=== PATIENT | female | born 1990 | race African-American/Black ===

== ENCOUNTER 2020-02-21 20:55 | Emergency (ER) | payer OTHER ==
[2020-02-21] MEDS ORDERED: LORATADINE 10 MG TAB PO STA (21:46)
[2020-02-21] MEDS ORDERED: FLUTICASONE 50MCG/SPRAY NASAL 16GM EA NOSTRIL STA (21:46)
--- NOTE | 2020-02-21 21:56 | ED ---
General Adult HPI - General Chief complaint: ENT Stated complaint: Poss bug in R ear Time Seen by Provider: 02/21/20 21:01 Source: patient, RN notes reviewed, old records reviewed Mode of arrival: ambulatory Limitations: no limitations - History of Present Illness Initial comments: 29-year-old female patient presents to ED for evaluation of right ear pain. Patient reports that she has a pressure in her right ear and she is having some pain from it. Patient reports that yesterday she ate seafood and had ALLERGIC reaction. States that she broke out in hives. Reports his has resolved at this point. She denies any headache but does report that the right ear is somewhat throbbing in nature. She declines any other complaints at this time. Systemic: Pt denies fatigue, fever/chills, rash. Pt denies weakness, night sweats, weight loss. Neuro: Pt denies headache, visual disturbances, syncope or pre-syncope. HEENT: Pt denies ocular discharge or irritation, rhinorrhea, pharyngitis or notable lymphadenopathy. Cardiopulmonary: Pt denies chest pain, SOB, heart palpitations, dyspnea on exertion. Abdominal/GI: Pt denies abdominal pain, n/v/d. : Pt denies dysuria, burning w/ urination, frequency/urgency. Denies new onset urinary or bowel incontinence. MSK: Pt denies myalgia, loss of strength or function in extremities. Neuro: Pt denies new onset weakness, paresthesias. - Related Data Previous Rx's Medication Instructions Recorded Nitrofurantoin Macrocrystal 100 mg PO BID #14 cap 07/10/16 [Macrodantin] EPINEPHrine (Auto Inject) [Epipen] 0.3 mg IM ONCE PRN #2 pen 02/21/20 Loratadine [Claritin] 10 mg PO DAILY 7 Days #7 tab 02/21/20 Allergies Allergy/AdvReac Type Severity Reaction Status Date / Time watermelon AdvReac Swelling Verified 02/21/20 21:00 Review of Systems ROS Statement: Those systems with pertinent positive or pertinent negative responses have been documented in the HPI. ROS Other: All systems not noted in ROS Statement are negative. Past Medical History Past Medical History: No Reported History Additional Past Medical History / Comment(s): Migraine History of Any Multi-Drug Resistant Organisms: None Reported Additional Past Surgical History / Comment(s): leep Past Psychological History: No Psychological Hx Reported Smoking Status: Never smoker Past Alcohol Use History: Rare Past Drug Use History: None Reported General Exam - General Exam Comments Initial Comments: Constitutional: NAD, AOX3, Pt has pleasant affect. HEENT: NC/AT, trachea midline. Posterior pharynx non erythematous, without exudates. External ears appear normal, without discharge. Right tympanic membrane does display effusion. No erythema or signs of infection. Mild bulging is noted. Left tympanic membrane pale joseph. No bulging, no effusion is noted. Mucous membranes moist. Eyes PERRLA, EOM intact. There is no scleral icterus. No pallor noted. Cardiopulmonary: RRR, no murmurs, rubs or gallops, no JVD noted. Lungs CTAB in anterior and posterior de leon. No peripheral edema. Neuro: CN II-XII intact. No nuchal rigidity. No raccon eyes, no fleming sign, no hemotympanum. MSK: Full active ROM in upper and lower extremities. Limitations: no limitations Course Vital Signs 02/21/20 20:57 Temperature 97.3 F L Pulse Rate 76 Respiratory 18 Rate Blood Pressure 127/85 O2 Sat by Pulse 100 Oximetry Medical Decision Making - Medical Decision Making 29-year-old female patient presented to ED for chief complaint of right ear pain. Patient was concerned that it may be some sort of foreign body in there. Patient will signs are stable, afebrile. Physical exam displayed effusion behind her tympanic membrane. Patient does report a history of ALLERGIES. Patient will be initiated on Claritin, Flonase. Patient will be prescribed epipen for emergency anaphylaxis. Will follow up with primary care provider will return here if condition worsens. Case discussed with Dr. Norwood. Disposition Clinical Impression: Middle ear effusion Disposition: HOME SELF-CARE Condition: Stable Instructions (If sedation given, give patient instructions): Earache (ED) Additional Instructions: Follow-up with primary care tomorrow. Take medications as directed. Use 1 spray in each nostril Flonase once per day. Take Claritin once per day. Use EpiPen only for emergency anaphylaxis this includes swelling of the face, difficulty breathing, sensation of throat closing. Return to ER if condition worsens. Prescriptions: Loratadine [Claritin] 10 mg PO DAILY 7 Days #7 tab EPINEPHrine (Auto Inject) [Epipen] 0.3 mg IM ONCE PRN #2 pen PRN Reason: Anaphylaxis Is patient prescribed a controlled substance at d/c from ED?: No Referrals: None,Stated [Primary Care Provider] - 1-2 days Carly Henry MD [REFERRING] - 1-2 days
[2020-02-21] MEDS ORDERED: ACETAMINOPHEN TAB 325 MG TAB PO STA (21:59)
[2020-02-21 22:22] VITALS: BP 115/89; PULSE 83; RESP 16; TEMP 98.3
== END 2020-02-21 22:21 | disposition home or self-care (01) ==
LOC: EC 20:55
DX: H74.8X1 Other specified disorders of right middle ear and mastoid (principal); Z91.018 Allergy to other foods
CPT/HCPCS: 99283

== ENCOUNTER 2020-03-02 22:51 | Emergency (ER) | payer OTHER ==
[2020-03-02 23:03] VITALS: BP 150/99; PULSE 90; RESP 18; TEMP 98.2
[2020-03-02] MEDS ORDERED: DEXAMETHASONE SOD PHOSPHATE 10 MG/ML 1 ML VIAL IM STA (23:48)
[2020-03-02] MEDS ORDERED: predniSONE 50 MG TAB PO STA (23:48)
[2020-03-02] MEDS ORDERED: valACYclovir 500 MG TAB PO STA (23:49)
--- NOTE | 2020-03-02 23:54 | ED ---
Neuro HPI - General Chief Complaint: Neuro Symptoms/Deficit Stated Complaint: L Face Drooping Time Seen by Provider: 03/02/20 23:19 Source: patient, RN notes reviewed, old records reviewed Mode of arrival: ambulatory Limitations: no limitations - History of Present Illness Is the patient presenting with stroke symptoms?: Yes -: week(s) Initial Comments: This is a 29-year-old female of recent diagnosis of right ear infection coming in with right-sided facial droop. Drooling difficulty with smiling closing her eye. Patient denying arm or leg symptoms. Patient states she was sent down after showing up for work and no significant to severe paralysis. Patient denying any trauma or any other complaints Location: right face History of same: No Place: home Severity: moderate Quality: weak, numb Improves With: none Worsens With: none Context: gradual onset Associated Symptoms: denies other symptoms Treatments Prior to Arrival: none - Related Data Home Medications: Previous Rx's Medication Instructions Recorded Nitrofurantoin Macrocrystal 100 mg PO BID #14 cap 07/10/16 [Macrodantin] EPINEPHrine (Auto Inject) [Epipen] 0.3 mg IM ONCE PRN #2 pen 02/21/20 Loratadine [Claritin] 10 mg PO DAILY 7 Days #7 tab 02/21/20 predniSONE 50 mg PO DAILY #6 tab 03/02/20 predniSONE [Deltasone] 20 mg PO DAILY #6 tab 03/02/20 valACYclovir HCL [Valtrex] 1,000 mg PO Q8HR #21 tab 03/02/20 Allergies/Adverse Reactions: Allergies Allergy/AdvReac Type Severity Reaction Status Date / Time watermelon AdvReac Swelling Verified 03/02/20 23:03 Review of Systems ROS Statement: Those systems with pertinent positive or pertinent negative responses have been documented in the HPI. ROS Other: All systems not noted in ROS Statement are negative. General Exam - General Exam Comments Initial Comments: Right-sided facial palsy and paralysis Limitations: no limitations General appearance: alert, in no apparent distress Head exam: Present: atraumatic, normocephalic, normal inspection Eye exam: Present: normal appearance, PERRL, EOMI. Absent: scleral icterus, conjunctival injection, periorbital swelling ENT exam: Present: normal exam, mucous membranes moist Neck exam: Present: normal inspection. Absent: tenderness, meningismus, lymphadenopathy Respiratory exam: Present: normal lung sounds bilaterally. Absent: respiratory distress, wheezes, rales, rhonchi, stridor Cardiovascular Exam: Present: regular rate, normal rhythm, normal heart sounds. Absent: systolic murmur, diastolic murmur, rubs, gallop, clicks GI/Abdominal exam: Present: soft, normal bowel sounds. Absent: distended, tenderness, guarding, rebound, rigid Extremities exam: Present: normal inspection, full ROM, normal capillary refill. Absent: tenderness, pedal edema, joint swelling, calf tenderness Back exam: Present: normal inspection Neurological exam: Present: alert, oriented X3, CN II-XII intact Psychiatric exam: Present: normal affect, normal mood Skin exam: Present: warm, dry, intact, normal color. Absent: rash Stroke MDM - NIH Stroke Scale 1a. Level of Consciousness: (0) alert 1b. LOC Questions: (0) answers correctly 1c. LOC Commands: (0) performs tasks correctly 2. Best Gaze: (0) normal 3. Visual: (0) no visual loss 4. Facial Palsy: (3) complete paralysis 5a. Motor Arm Left: (0) no drift 5b. Motor Arm Right: (0) no drift 6a. Motor Leg Left: (0) no drift 6b. Motor Leg Right: (0) no drift 7. Limb Ataxia: (0) absent 8. Sensory: (0) normal 9. Best Language: (0) no aphasia 10. Dysarthria: (0) normal 11. Extinction/Inattention: (0) no abnormality - Thrombolytic Inclusion/Exclusion Thrombolytic Exclusion Criteria: Symptom Onset > 4.5 Hours - Medical Decision Making 29 female DF presented with right facial paralysis diagnosis of Alonso's palsy made. Patient can be discharged home Past Medical History Past Medical History: No Reported History Additional Past Medical History / Comment(s): Migraine History of Any Multi-Drug Resistant Organisms: None Reported Additional Past Surgical History / Comment(s): leep Past Psychological History: No Psychological Hx Reported Smoking Status: Never smoker Past Alcohol Use History: Rare Past Drug Use History: None Reported Course Vital Signs 03/02/20 22:53 Temperature 98.2 F Pulse Rate 90 Respiratory 18 Rate Blood Pressure 150/99 O2 Sat by Pulse 99 Oximetry - Reevaluation(s) Reevaluation #1: Medical records reviewed Patient informed spoke with regarding diagnosis at length, questions answered Disposition Clinical Impression: Middle ear effusion, Right-sided Alonso's palsy Disposition: HOME SELF-CARE Condition: Fair Instructions (If sedation given, give patient instructions): Alonso Palsy (ED) Prescriptions: predniSONE [Deltasone] 20 mg PO DAILY #6 tab predniSONE 50 mg PO DAILY #6 tab valACYclovir HCL [Valtrex] 1,000 mg PO Q8HR #21 tab Is patient prescribed a controlled substance at d/c from ED?: No Referrals: Lowell Abreu MD [STAFF PHYSICIAN] - 1-2 days
== END 2020-03-03 00:16 | disposition home or self-care (01) ==
LOC: EC 22:51
DX: G51.0 Bell's palsy (principal); H74.8X9 Other specified disorders of middle ear and mastoid, unspecified ear; Z91.018 Allergy to other foods; Z86.69 Personal history of other diseases of the nervous system and sense organs
CPT/HCPCS: 99284; 96372; J1100; J7512

== ENCOUNTER 2020-08-24 06:35 | Emergency (ER) | payer BC, OTHER ==
[2020-08-24] MEDS ORDERED: SODIUM CHLORIDE 0.9% 1,000 ML IV STA (06:36)
[2020-08-24] MEDS ORDERED: HYDROmorphone 0.5 MG/0.5 ML SYRINGE IVP STA (06:36)
[2020-08-24] MEDS ORDERED: KETOROLAC 15 MG/ML 1 ML VIAL IVP STA (06:36)
[2020-08-24] MEDS ORDERED: ONDANSETRON 4 MG/2 ML VIAL IVP STA (06:36)
--- NOTE | 2020-08-24 06:39 | ED ---
General Adult HPI - General Source: patient, EMS, RN notes reviewed Mode of arrival: EMS Limitations: no limitations <Jeremías Yadav - Last Filed: 08/24/20 12:29> <Walter Casey - Last Filed: 08/27/20 16:55> - General Stated complaint: Abd Pain Time Seen by Provider: 08/24/20 06:36 - History of Present Illness Initial comments: This is a 29-year-old female presents emergency department via EMS chief complaint of sudden onset of abdominal pain. Patient states that it's in her lower abdomen and left side. Patient states that she's never had anything like this in the past. No history kidney stones no prior abdominal surgeries denies any chance . Patient states nothing makes the pain feel better or worse at this time she has no dysuria no hematuria no vaginal bleeding or vaginal discharge. Patient states that she is due for her mental cycle beginning in denies any chance . Patient denies chest pain or shortness of breath. Patient did not take any for her pain. Patient has slight nausea no vomiting. (Jeremías Yadav) - Related Data Previous Rx's Medication Instructions Recorded Ibuprofen [Motrin] 600 mg PO Q8HR PRN #20 tab 08/24/20 Allergies Allergy/AdvReac Type Severity Reaction Status Date / Time shrimp Allergy Rash/Hives Verified 08/24/20 09:05 watermelon AdvReac Swelling Verified 08/24/20 09:05 Review of Systems ROS Other: All systems not noted in ROS Statement are negative. <Jeremías Yadav - Last Filed: 08/24/20 12:29> ROS Other: All systems not noted in ROS Statement are negative. <Walter Casey - Last Filed: 08/27/20 16:55> ROS Statement: Those systems with pertinent positive or pertinent negative responses have been documented in the HPI. Past Medical History Past Medical History: No Reported History Additional Past Medical History / Comment(s): Migraine History of Any Multi-Drug Resistant Organisms: None Reported Additional Past Surgical History / Comment(s): leep Past Psychological History: No Psychological Hx Reported Past Alcohol Use History: Rare Past Drug Use History: None Reported <Jeremías Yadav - Last Filed: 08/24/20 12:29> General Exam General appearance: alert, in no apparent distress Head exam: Present: atraumatic, normocephalic, normal inspection Eye exam: Present: normal appearance, PERRL, EOMI. Absent: scleral icterus, conjunctival injection, periorbital swelling ENT exam: Present: normal exam, normal oropharynx, mucous membranes moist Neck exam: Present: normal inspection, full ROM. Absent: tenderness, meningismus, lymphadenopathy Respiratory exam: Present: normal lung sounds bilaterally. Absent: respiratory distress, wheezes, rales, rhonchi, stridor Cardiovascular Exam: Present: regular rate, normal rhythm, normal heart sounds. Absent: systolic murmur, diastolic murmur, rubs, gallop, clicks GI/Abdominal exam: Present: soft, tenderness, normal bowel sounds. Absent: di stended, guarding, rebound, rigid Back exam: Present: CVA tenderness (L). Absent: CVA tenderness (R) Neurological exam: Present: alert, oriented X3 Skin exam: Present: warm, dry, intact, normal color. Absent: rash <Jeremías Yadav - Last Filed: 08/24/20 12:29> Course Vital Signs 08/24/20 08/24/20 06:36 12:47 Temperature 98.7 F 98.9 F Pulse Rate 87 73 Respiratory 22 18 Rate Blood Pressure 106/75 106/67 O2 Sat by Pulse 97 100 Oximetry Medical Decision Making - Lab Data Result diagrams: 08/24/20 06:41 08/24/20 06:41 <Jeremías Yadav - Last Filed: 08/24/20 12:29> - Lab Data Result diagrams: 08/24/20 06:41 08/24/20 06:41 <Walter Casey - Last Filed: 08/27/20 16:55> - Medical Decision Making 29-year-old female presented for some onset of lower abdominal pain. Patient CT shows evidence of pelvic fluid ultrasound was ordered at this time shows possibly 51 and also of fluid and multiple ovarian cyst. Patient case discussed with on-call PREHEMMER Dr. Serrano in which she stated the patient could be admitted to his services his pain was not controlled for hemorrhagic cyst. Patient was given initial pain medication, r a dose of ibuprofen. Patient states pain is very mild patient was offered admission to the hospital patient states that she feels comfortable going home she's been very strict return parameters (Jeremías Yadav) 30-year-old female presenting with abdominal pain. Pain was sudden onset. Workup initiated which included pelvic ultrasound as well as CT abdomen pelvis. There is free fluid measuring approximately 50 mL in the pelvis and multiple cysts on both ovaries. Given the history there is concern for hemorrhagic cyst. I discussed case with the reporter anchor separations scientist Dr. Serrano. He recommended that the patient either be admitted for pain control or be discharged home with close outpatient follow-up. Patient remained hemodynamically stable and her pain improved. And she preferred discharge. She will follow up on an outpatient basis. (Walter Casey) - Lab Data Lab Results 08/24/20 08/24/20 08/24/20 Range/Units 06:41 06:41 06:41 WBC 3.3 L (3.8-10.6) k/uL RBC 4.69 (3.80-5.40) m/uL Hgb 13.3 (11.4-16.0) gm/dL Hct 41.3 (34.0-46.0) % MCV 88.2 (80.0-100.0) fL MCH 28.3 (25.0-35.0) pg MCHC 32.1 (31.0-37.0) g/dL RDW 13.2 (11.5-15.5) % Plt Count 311 (150-450) k/uL MPV 6.9 Neutrophils % 34 % Lymphocytes % 57 % Monocytes % 4 % Eosinophils % 3 % Basophils % 1 % Neutrophils # 1.1 L (1.3-7.7) k/uL Lymphocytes # 1.9 (1.0-4.8) k/uL Monocytes # 0.1 (0-1.0) k/uL Eosinophils # 0.1 (0-0.7) k/uL Basophils # 0.0 (0-0.2) k/uL Sodium 139 (137-145) mmol/L Potassium 4.2 (3.5-5.1) mmol/L Chloride 109 H (98-107) mmol/L Carbon Dioxide 22 (22-30) mmol/L Anion Gap 8 mmol/L BUN 12 (7-17) mg/dL Creatinine 0.84 (0.52-1.04) mg/dL Est GFR (CKD-EPI)AfAm >90 (>60 ml/min/1.73 sqM) Est GFR (CKD-EPI)NonAf >90 (>60 ml/min/1.73 sqM) Glucose 90 (74-99) mg/dL Calcium 9.2 (8.4-10.2) mg/dL Total Bilirubin 0.5 (0.2-1.3) mg/dL AST 23 (14-36) U/L ALT 16 (4-34) U/L Alkaline Phosphatase 64 (38-126) U/L Total Protein 7.5 (6.3-8.2) g/dL Albumin 4.4 (3.5-5.0) g/dL Lipase 89 (23-300) U/L Urine Color Light Yellow Urine Appearance Clear (Clear) Urine pH 8.0 (5.0-8.0) Ur Specific [place] 1.014 (1.001-1.035) Urine Protein Negative (Negative) Urine Glucose (UA) Negative (Negative) Urine Ketones Negative (Negative) Urine Blood Negative (Negative) Urine Nitrite Negative (Negative) Urine Bilirubin Negative (Negative) Urine Urobilinogen <2.0 (<2.0) mg/dL Ur Leukocyte Esterase Trace H (Negative) Urine RBC 1 (0-5) /hpf Urine WBC 3 (0-5) /hpf Ur Squamous Epith Cells 3 (0-4) /hpf Urine Mucus Rare H (None) /hpf Urine HCG, Qual (Not Detectd) 08/24/20 Range/Units 06:41 WBC (3.8-10.6) k/uL RBC (3.80-5.40) m/uL Hgb (11.4-16.0) gm/dL Hct (34.0-46.0) % MCV (80.0-100.0) fL MCH (25.0-35.0) pg MCHC (31.0-37.0) g/dL RDW (11.5-15.5) % Plt Count (150-450) k/uL MPV Neutrophils % % Lymphocytes % % Monocytes % % Eosinophils % % Basophils % % Neutrophils # (1.3-7.7) k/uL Lymphocytes # (1.0-4.8) k/uL Monocytes # (0-1.0) k/uL Eosinophils # (0-0.7) k/uL Basophils # (0-0.2) k/uL Sodium (137-145) mmol/L Potassium (3.5-5.1) mmol/L Chloride (98-107) mmol/L Carbon Dioxide (22-30) mmol/L Anion Gap mmol/L BUN (7-17) mg/dL Creatinine (0.52-1.04) mg/dL Est GFR (CKD-EPI)AfAm (>60 ml/min/1.73 sqM) Est GFR (CKD-EPI)NonAf (>60 ml/min/1.73 sqM) Glucose (74-99) mg/dL Calcium (8.4-10.2) mg/dL Total Bilirubin (0.2-1.3) mg/dL AST (14-36) U/L ALT (4-34) U/L Alkaline Phosphatase (38-126) U/L Total Protein (6.3-8.2) g/dL Albumin (3.5-5.0) g/dL Lipase (23-300) U/L Urine Color Urine Appearance (Clear) Urine pH (5.0-8.0) Ur Specific [place] (1.001-1.035) Urine Protein (Negative) Urine Glucose (UA) (Negative) Urine Ketones (Negative) Urine Blood (Negative) Urine Nitrite (Negative) Urine Bilirubin (Negative) Urine Urobilinogen (<2.0) mg/dL Ur Leukocyte Esterase (Negative) Urine RBC (0-5) /hpf Urine WBC (0-5) /hpf Ur Squamous Epith Cells (0-4) /hpf Urine Mucus (None) /hpf Urine HCG, Qual Not Detected (Not Detectd) Disposition Is patient prescribed a controlled substance at d/c from ED?: No Time of Disposition: 12:31 <Jeremías Yadav - Last Filed: 08/24/20 12:29> <Walter Casey - Last Filed: 08/27/20 16:55> Clinical Impression: Abdominal pain, Hemorrhagic ovarian cyst Disposition: HOME SELF-CARE Condition: Stable Instructions (If sedation given, give patient instructions): Ruptured Ovarian Cyst (ED) Additional Instructions: Please return to the Emergency Department if symptoms worsen or any other conc erns. Prescriptions: Ibuprofen [Motrin] 600 mg PO Q8HR PRN #20 tab PRN Reason: Pain Referrals: None,Stated [Primary Care Provider] - 1-2 days Herman Serrano MD [STAFF PHYSICIAN] - 1-2 days
[2020-08-24 06:57] LABS: Basophils % (A) 1 %; Eosinophils # (A) 0.1 k/uL (0-0.7); Eosinophils % (A) 3 %; HCT 41.3 % (34.0-46.0); HGB 13.3 gm/dL (11.4-16.0); Lymphocytes # (A) 1.9 k/uL (1.0-4.8); Lymphocytes % (A) 57 %; MCH 28.3 pg (25.0-35.0); MCHC 32.1 g/dL (31.0-37.0); MCV 88.2 fL (80.0-100.0); Mean Platelet Volume 6.9; Monocytes # (A) 0.1 k/uL (0-1.0); Monocytes % (A) 4 %; Neutrophils # (A) 1.1 k/uL (1.3-7.7); Neutrophils % (A) 34 %; Platelet Count 311 k/uL (150-450); RBC 4.69 m/uL (3.80-5.40); RDW 13.2 % (11.5-15.5); WBC 3.3 k/uL (3.8-10.6)
[2020-08-24 06:59] LABS: ALT 16 U/L (4-34); AST 23 U/L (14-36); African American GFR (CKD) >90 (>60 ml/min/1.73 sqM); Albumin 4.4 g/dL (3.5-5.0); Alkaline Phosphatase 64 U/L (38-126); Anion Gap 8 mmol/L; Blood Urea Nitrogen 12 mg/dL (7-17); Calcium 9.2 mg/dL (8.4-10.2); Carbon Dioxide 22 mmol/L (22-30); Chloride 109 mmol/L (98-107); Glucose 90 mg/dL (74-99); Lipase 89 U/L (23-300); Non-African American GFR(CKD) >90 (>60 ml/min/1.73 sqM); Potassium 4.2 mmol/L (3.5-5.1); Sodium 139 mmol/L (137-145); Total Bilirubin 0.5 mg/dL (0.2-1.3); Total Protein 7.5 g/dL (6.3-8.2)
[2020-08-24 07:52] LABS: Appearance,Urine Clear (Clear); Bilirubin,Urine Negative (Negative); Blood,Urine Negative (Negative); Color,Urine Light Yellow; Glucose,Urine (UA) Negative (Negative); Ketones,Urine Negative (Negative); Leukocyte Esterase,Urine Trace (Negative); Mucus,Urine Rare /hpf; Nitrite,Urine Negative (Negative); Protein,Urine Negative (Negative); RBC,Urine 1 /hpf (0-5); Specific Gravity,Urine 1.014 (1.001-1.035); Squamous Epithelial Cell,Urine 3 /hpf (0-4); Urobilinogen,Urine <2.0 mg/dL (<2.0); WBC,Urine 3 /hpf (0-5)
--- NOTE | 2020-08-24 08:59 | CT ---
EXAMINATION TYPE: CT abdomen pelvis wo con DATE OF EXAM: 08/24/2020 HISTORY: Left lower quadrant pain into back CT DLP: 266.3 mGycm. Automated Exposure Control for Dose Reduction was Utilized. TECHNIQUE: CT scan of the abdomen and pelvis is performed without oral or IV contrast. COMPARISON: NONE FINDINGS: Within the limitations of a non-contrast study, the following observations are made. LUNG BASES: No significant abnormality is appreciated. LIVER/GB: Gallbladder has distended margins without surrounding inflammatory change. PANCREAS: No significant abnormality is seen. SPLEEN: No significant abnormality is seen. ADRENALS: No significant abnormality is seen. KIDNEYS: No renal stones bilaterally. Asymmetric mild left-sided pyelocaliectasis without obstructing calculus clearly seen. Some right-sided pelvic phleboliths are noted. No intraluminal calculus in sa tisfactorily distended bladder BOWEL: Suboptimal evaluation without enteric contrast and patient having virtual no intra-abdominal f at. No suspicious small or large bowel dilatation is seen. Some hyperdense ingested material flow pre sent in the anterior lower abdominal small bowel loops GENITAL ORGANS: Anteverted uterus. In the posterior cul-de-sac there is moderate to severe pelvic flu id surrounding some small and large bowel loops. Along the anterior superior margin of the uterine fu ndus there is a oval 2.7 cm low dense lesion coronal image 19. LYMPH NODES: No greater than 1cm abdominal or pelvic lymph nodes are appreciated. OSSEOUS STRUCTURES: No significant abnormality is seen. OTHER: No significant additional abnormality is seen. IMPRESSION: No renal stones identified bilaterally. Mild left-sided pyelocaliectasis without distinct hydroureter or obstructing stone. There is moderate to severe amount of fluid in the pelvis, cannot exclude nonsimple etiology. Advise pelvic ultrasound to further evaluate.
--- NOTE | 2020-08-24 10:39 | US ---
EXAMINATION TYPE: US transvaginal DATE OF EXAM: 08/24/2020 COMPARISON: CT, US CLINICAL HISTORY: pain. Midline pelvic pain today radiating to left;, LEAP procedure TECHNIQUE: Transvaginal sonographic images were medically necessary per the physician Date of LMP: First week of July EXAM MEASUREMENTS: Uterus: 9.0 x 4.8 x 4.0 cm Endometrial Stripe: 0.5 cm Right Ovary: 4.2 x 5.1 x 2.4 cm Left Ovary: 4.6 x 4.6 x 3.1 cm 1. Uterus: Anteverted , Complex Nabothian Cyst in cervix = 1.0 x 0.9 x 1.0cm; Oval solid mass, heter ogeneous to normal myometrium and with peripheral vascularity noted in upper right myometrium = 1.3 x 1.5 x 1.5cm, and is suggestive of uterine fibroid. 2. Endometrium: thin measure for mid August with LMP approximately 40 days ago. 3. Right Ovary: enlarged, multiple follicles with largest as cyst within larger cyst = 3.1 x 3.1 x 2. 8cm. Free fluid seen medial to right ovary 4. Left Ovary: enlarged, multiple follicles with largest as involuting cyst = 2.9 x 4.0 x 1.8cm. Spectral, color and waveform doppler imaging shows good arterial and venous flow within the ovaries ; there is no evidence for ovarian torsion. 5. Bilateral Adnexa: free fluid near bilateral ovary 6. Posterior cul-de-sac: free fluid in cul de sac = 7.5 x 6.5 x 2.0 x 0.523 = 51.0ml and is abnorma l volume as is greater than 10.0ml. IMPRESSION: 1. Increased free fluid within the pelvis. 2. Uterine fibroid. 3. Ovarian cysts bilaterally
[2020-08-24] MEDS ORDERED: IBUPROFEN 600 MG TAB PO STA (11:06)
[2020-08-24] MEDS ORDERED: ACET/COD 300 MG/30 MG STARTER PACK 6 TAB BTL PO STA (12:31)
[2020-08-24 12:49] VITALS: BP 106/67; PULSE 73; RESP 18; TEMP 98.9
== END 2020-08-24 12:49 | disposition home or self-care (01) ==
LOC: EC 06:35
DX: N83.202 Unspecified ovarian cyst, left side (principal); N83.201 Unspecified ovarian cyst, right side; Z91.013 Allergy to seafood; Z91.018 Allergy to other foods
CPT/HCPCS: 36415; 80053; 83690; 85025; 81001; 81025; 93976; 76830; 74176; 99284; 96374; 96375 ×2; 96361; J2405; J1885

== ENCOUNTER 2021-09-10 17:46 | Emergency (ER) | payer OTHER ==
--- NOTE | 2021-09-10 21:56 | ED ---
General Adult HPI - General Chief complaint: Headache Stated complaint: covid+, wants infusion Time Seen by Provider: 09/10/21 21:45 Source: patient Mode of arrival: ambulatory Limitations: no limitations - History of Present Illness Initial comments: This patient is a 31-year-old woman who has developed constellation of symptoms consistent with coronavirus over the past couple days. She did have a positive test and is wondering about availability of antibody treatment. She has been having headache congestion, body aches, rhinorrhea. -: days(s) Location: head Consistency: constant Improves with: none Worsens with: none Associated Symptoms: cough, fever/chills, headaches Treatments Prior to Arrival: none - Related Data Previous Rx's Medication Instructions Recorded Ibuprofen [Motrin] 600 mg PO Q8HR PRN #20 tab 08/24/20 Allergies Allergy/AdvReac Type Severity Reaction Status Date / Time shrimp Allergy Rash/Hives Verified 09/10/21 20:00 watermelon AdvReac Swelling Verified 09/10/21 20:00 Review of Systems ROS Statement: Those systems with pertinent positive or pertinent negative responses have been documented in the HPI. ROS Other: All systems not noted in ROS Statement are negative. Constitutional: Reports: fever, chills. Denies: weakness ENT: Reports: congestion Respiratory: Reports: cough. Denies: dyspnea, wheezes, hemoptysis Cardiovascular: Denies: chest pain, edema, syncope Gastrointestinal: Denies: abdominal pain, vomiting, diarrhea Genitourinary: Denies: dysuria, hematuria Musculoskeletal: Reports: myalgia Skin: Denies: rash Neurological: Reports: headache. Denies: weakness, numbness, confusion Past Medical History Past Medical History: No Reported History Additional Past Medical History / Comment(s): Migraine History of Any Multi-Drug Resistant Organisms: None Reported Additional Past Surgical History / Comment(s): leep Past Psychological History: No Psychological Hx Reported Smoking Status: Never smoker Past Alcohol Use History: Occasional Past Drug Use History: None Reported General Exam Limitations: no limitations General appearance: alert, in no apparent distress Head exam: Present: atraumatic, normocephalic Eye exam: Present: normal appearance. Absent: scleral icterus, conjunctival injection Neck exam: Present: normal inspection, full ROM, lymphadenopathy. Absent: tenderness, meningismus Respiratory exam: Present: normal lung sounds bilaterally. Absent: respiratory distress, wheezes, rales, rhonchi, stridor Cardiovascular Exam: Present: regular rate, normal rhythm, normal heart sounds. Absent: systolic murmur, diastolic murmur, rubs, gallop GI/Abdominal exam: Present: soft. Absent: distended, tenderness, guarding, rebound Extremities exam: Present: normal inspection, normal capillary refill Neurological exam: Present: alert Skin exam: Present: warm, dry, intact, normal color. Absent: rash Course Vital Signs 09/10/21 09/10/21 19:53 22:18 Temperature 100.1 F H 99 F Pulse Rate 100 83 Respiratory 20 18 Rate Blood Pressure 123/87 113/82 O2 Sat by Pulse 100 97 Oximetry Disposition Clinical Impression: COVID-19 Disposition: HOME SELF-CARE Condition: Good Instructions (If sedation given, give patient instructions): Coronavirus Disease 2019 (COVID-19) Is patient prescribed a controlled substance at d/c from ED?: No Referrals: None,Stated [Primary Care Provider] - 1-2 days
[2021-09-10 22:20] VITALS: BP 113/82; PULSE 83; RESP 18; TEMP 99
== END 2021-09-10 22:18 | disposition home or self-care (01) ==
LOC: EC 17:46
DX: U07.1 COVID-19 (principal)
CPT/HCPCS: 99283

== ENCOUNTER 2022-08-17 22:12 | Emergency (ER) | payer OTHER ==
[2022-08-17 22:15] VITALS: RESP 16
--- NOTE | 2022-08-17 22:28 | ED ---
Extremity Problem HPI - General Chief complaint: Extremity Problem,Nontraumatic Stated complaint: lt leg swollen Time Seen by Provider: 08/17/22 22:18 Source: patient, RN notes reviewed Mode of arrival: ambulatory - History of Present Illness Initial comments: This is a pleasant 31-year-old female presents to emergency Complaining of pain in her left calf and left lower leg area. 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 Patient states she may have injured it doing this yesterday. However patient states she got home today noticed she has some swelling to that left lower leg. Denying any other symptomology. No distal paresthesias. No distal proximal injuries. Patient states the pain seems to be a candidate tight in nature, exacerbated by movement, most prominent near the proximal calf/popliteal space. No chest pain or shortness of breath. No fever. Patient also has some chronic back pain and previously has had some lumbar radiculopathy. I any problems with bowel movements or urination. No direct trauma. Patient is not on any specific medications. Has been taking some ibuprofen. Denies chance of . No hormone therapy or control pills. MD Complaint: extremity pain, extremity swelling - Related Data Previous Rx's Medication Instructions Recorded Ibuprofen [Motrin] 600 mg PO Q8HR PRN #20 tab 08/24/20 Naproxen [Naprosyn] 375 mg PO Q12HR PRN #20 tablet 08/18/22 Allergies Allergy/AdvReac Type Severity Reaction Status Date / Time shrimp Allergy Rash/Hives Verified 08/17/22 22:15 watermelon AdvReac Swelling Verified 08/17/22 22:15 Review of Systems ROS Statement: Those systems with pertinent positive or pertinent negative responses have been documented in the HPI. ROS Other: All systems not noted in ROS Statement are negative. Past Medical History Past Medical History: No Reported History Additional Past Medical History / Comment(s): Migraine History of Any Multi-Drug Resistant Organisms: None Reported Additional Past Surgical History / Comment(s): leep Past Psychological History: No Psychological Hx Reported Smoking Status: Never smoker Past Alcohol Use History: Occasional Past Drug Use History: None Reported General Exam General appearance: alert, in no apparent distress Head exam: Present: atraumatic, normocephalic, normal inspection Eye exam: Present: normal appearance, PERRL, EOMI. Absent: scleral icterus, conjunctival injection, periorbital swelling ENT exam: Present: normal exam, mucous membranes moist Neck exam: Present: normal inspection. Absent: tenderness, meningismus, lymphadenopathy Respiratory exam: Present: normal lung sounds bilaterally. Absent: respiratory distress, wheezes, rales, rhonchi, stridor Cardiovascular Exam: Present: regular rate, normal rhythm, normal heart sounds. Absent: systolic murmur, diastolic murmur, rubs, gallop, clicks GI/Abdominal exam: Present: soft, normal bowel sounds. Absent: distended, tende rness, guarding, rebound, rigid Extremities exam: Present: normal inspection, full ROM, normal capillary refill, pedal edema (Scant left lower leg edema noted.), calf tenderness (Mild proximal calf tenderness. No palpable cord. Homans sign negative.), other (Pulses 2+ out of 4, no erythema, no rash, no break in skin integrity). Absent: tenderness, joint swelling Back exam: Present: normal inspection Neurological exam: Present: alert, oriented X3, CN II-XII intact Psychiatric exam: Present: normal affect, normal mood Skin exam: Present: warm, dry, intact, normal color. Absent: rash Course Vital Signs 08/17/22 08/17/22 22:13 22:31 Temperature 97.4 F L 98 F Pulse Rate 74 82 Respiratory 16 16 Rate Blood Pressure 127/90 121/91 O2 Sat by Pulse 98 99 Oximetry Medical Decision Making - Medical Decision Making Wells criteria is -1 making DVT unlikely. However we'll go ahead and order a venous Doppler since this is noninvasive. Patient septostomy appears to be consistent with musculoskeletal etiology. Likely a proximal calf strain. Dependent edema also possibility. Does not appear to be related to infectious etiology. I see no indication for laboratory investigations at this time. Does not appear to be consistent with bony pathology. X-rays not indicated. Venous Doppler was negative. Patient's will be treated conservatively for musculoskeletal pain. Discussed treatment plan with the patient. Patient concurs. Patient was told to return to the ER for any signs or symptoms worsen. Told to return immediately if any other problems arise. All questions answered. Treatment plan discussed. Patient in agreement Every effort has been made to ensure accuracy of this dictation. However, due to the limitations of electronic medical records and dictation devices, errors in charting still occur. Chicken Sexer Dr. Mckeon Disposition Clinical Impression: Strain of left calf muscle Disposition: HOME SELF-CARE Condition: Good Instructions (If sedation given, give patient instructions): Muscle Strain (ED) Additional Instructions: Follow-up with your regular physician as directed. Return to the ER immediately if any symptoms worsen, new symptoms arise, or any other problems develop. Prescriptions: Naproxen [Naprosyn] 375 mg PO Q12HR PRN #20 tablet PRN Reason: Pain Is patient prescribed a controlled substance at d/c from ED?: No Referrals: Yousuf Jane PAC [PHYSICIAN DESIGN EDITOR] - 08/23/22 Time of Disposition: 00:02
--- NOTE | 2022-08-17 23:03 | US ---
EXAMINATION TYPE: US venous doppler duplex LE LT DATE OF EXAM: 08/17/2022 10:55 PM COMPARISON: NONE CLINICAL HISTORY: Left leg edema/pain. Left leg pain and edema. No hx of DVT. Patient does not take b lood thinners. SIDE PERFORMED: Left TECHNIQUE: The lower extremity deep venous system is examined utilizing real time linear array sonog blaine with graded compression, doppler sonography and color-flow sonography. VESSELS IMAGED: Common Femoral Vein Deep Femoral Vein Greater Saphenous Vein * Femoral Vein Popliteal Vein Small Saphenous Vein * Proximal Calf Veins (* superficial vessels) Left Leg: Duplicate popliteal vein noted. No evidence of DVT in veins imaged at this time. Patient w as in a great amount of pain while scanning behind the knee. IMPRESSION: No sign of deep vein thrombosis in the left leg.
[2022-08-18 00:31] VITALS: BP 120/72; PULSE 72; TEMP 97.8
== END 2022-08-18 00:09 | disposition home or self-care (01) ==
LOC: EC 22:12
DX: S86.112A Strain of other muscle(s) and tendon(s) of posterior muscle group at lower leg level, left leg, initial encounter (principal); Z91.013 Allergy to seafood; Z91.018 Allergy to other foods; Y93.39 Activity, other involving climbing, rappelling and jumping off; Y92.812 Truck as the place of occurrence of the external cause
CPT/HCPCS: 99284